=== PATIENT | female | born 1940 | race Asian ===

== ENCOUNTER → 2020-10-09 | Outpatient (CLI) | payer MEDICARE, BC ==
[~2020-10-09] MED LIST: COZAAR100 MG PO; EVISTA 60MG60 MG/TAB PO; GLUCOSAMINE CHO1 CA2 PO; OMEGA 31000 MG PO; QUININE SULFAT PO; TOPROL XL 50MG50 MG PO; VITAMIN ABC PLU PO; VITAMIN D1000 IU PO; ZOCOR 20MG20 MG PO
== END ==
LOC: COL.RAD 12:24
DX: Z12.89 Encounter for screening for malignant neoplasm of other sites (principal); H47.011 Ischemic optic neuropathy, right eye
CPT/HCPCS: Q9967

== ENCOUNTER → 2021-12-15 | Outpatient (CLI) | payer MEDICARE, BC | LOC: COL.RAD 12:52 | DX: H53.483 Generalized contraction of visual field, bilateral (principal); H53.123 Transient visual loss, bilateral; R53.1 Weakness; H53.30 Unspecified disorder of binocular vision | CPT/HCPCS: A9575 ==

== ENCOUNTER → 2022-02-19 | Outpatient (CLI) | payer MEDICARE, BC | LOC: COL.RAD 12:47 | DX: I25.10 Atherosclerotic heart disease of native coronary artery without angina pectoris (principal); I51.7 Cardiomegaly; M89.9 Disorder of bone, unspecified; H54.7 Unspecified visual loss | CPT/HCPCS: Q9967 ==